=== PATIENT | female | born 1995 | race Caucasian/White ===

== ENCOUNTER 2018-03-25 12:28 | Day surgery (SDC) | payer OTHER ==
[~2018-03-25] VITALS: Ht 162.6 cm; Wt 72.6 kg
[2018-03-25 13:36] LABS: APTT 21.5 SECONDS (22.8-39.4); INR 1.05 (0.85-1.17); PROTIME 13.2 SECONDS (11.6-15.0)
[2018-03-25 13:55] LABS: BASOPHILS 0.5 % (0-2); HEMOGLOBIN 10.9 g/dL (12-16); IMMATURE GRANULOCYTES 0.3 % (0-5); LYMPHOCYTES 15.3 % (15-50); MCH 27.8 pg (26.0-34.0); MCHC 32.1 g/dL (31.0-37.0); MCV 86.7 fL (80.0-100.0); MEAN PLATELET VOLUME 10.6 fL (7.4-10.4); MONOCYTES 8.6 % (2-11); NEUTROPHILS 68.3 % (40-80); PLATELET COUNT 203 10x3/uL (130-400); RBC 3.92 10x6/uL (4.00-5.40); RDW 13.1 % (11.5-14.5); WBC 10.4 10x3/uL (4.8-10.8)
[2018-03-25 13:56] LABS: CALC OSMOLALITY 283 mosm/kg (275-300); CALCIUM 8.5 mg/dL (8.5-10.1); CARBON DIOXIDE 21.8 mmol/L (21.0-32.0); CHLORIDE - SERUM 107 mmol/L (98-107); CREATININE - SERUM 0.7 mg/dL (0.6-1.3); GLUCOSE 82 mg/dL (74-106); POTASSIUM - SERUM 4.3 mmol/L (3.5-5.1); SODIUM 144 mmol/L (136-145); UREA NITROGEN 7 mg/dL (7-18); eGFR NON AFRICAN AMERICAN > 90 mL/min (90-120)
[2018-03-25 14:06] VITALS: BP 111/70; Ht 162.6 cm; Wt 72.6 kg
[2018-03-25 14:15] LABS: HCG SERUM NEGATIVE (NEGATIVE)
--- NOTE | 2018-03-25 16:40 | NUR ---
REC'D FROM RR. FAMILY AT BEDSIDE. DRESSING CDI TO NIPPLE AREA. ICE WATER BROUGHT TO PT.
--- NOTE | 2018-03-25 16:55 | NUR ---
CALLED DR LANGFORD'S OFFICE TO CONFIRM DR HALE'S CONSULT. OFFICE PERSONNEL RELATED DR LANGFORD WOULD NOT BE ABLE TO SEE THE PATIENT BEFORE BEING DISCHARGED TODAY HAVE HER CALL IN THE AM AND SCHEDULE AN APPOINTMENT WITH DR LANGFORD. ALSO COULD NOT SCHEDULE F/U WITH DR HALE DUE TO OFFICE BEING CLOSED.
--- NOTE | 2018-03-25 17:10 | NUR ---
DARIO LEO BROUGHT TO PT. FAMILY AT BEDSIDE. NO CHANGES NOTED.
--- NOTE | 2018-03-25 17:40 | NUR ---
TOLERATED DIET. IV DC'D WITH CATHETER INTACT.
--- NOTE | 2018-03-25 18:15 | NUR ---
WRITTEN AND VERBAL DC INST. GIVEN TO PT AND SPOUSE ALONG WITH RX. RE-ENFORCED TO CALL AND MAKE F/U APPOINTMENTS TOMORROW. VERBALIZED UNDERSTANDING.
--- NOTE | 2018-03-25 18:30 | NUR ---
DC'D HOME WITH SPOUSE VIA PRIVATE VEHICLE. TAKEN TO VEHICLE VIA WC. STABLE AT TIME OF DC.
--- NOTE | 2018-04-30 15:51 | OP ---
PATIENT NAME: MERCED MILLER MEDICAL RECORD: [id number] :93 LOCATION:D.OPS ADMISSION DATE: SURGEON: NITZA HALE MD DATE OF OPERATION: 03/25/2018 REFERRED BY: Dr. Robert New from [facility]. PREOPERATIVE DIAGNOSIS: Left breast abscess. POSTOPERATIVE DIAGNOSIS: Left breast abscess. OPERATION PERFORMED: Incision and drainage of left breast abscess. SURGEON: Nitza Hale MD ANESTHESIA: General per [facility] and Dr. Hardin. PREOPERATIVE NOTE: Ms. Miller is a 22-year-old white female patient, near 2 months , who is her and has developed an abscess in the upper medial quadrant and subareolar area of her left breast. She has been treated for several days now with oral erythromycin and dicloxacillin without resolution. In fact, she has gone on from an area of induration and cellulitis to a amita abscess, which is beginning to point near the areolar margin in the upper inner quadrant. She is brought to the OR now as an outpatient for an incision and drainage. DESCRIPTION OF PROCEDURE: Under anesthesia in supine position, the patient was prepped and draped in sterile manner. She was examined with ultrasound intraoperatively, and a syringe and needle used then to aspirate pus from the abscess under ultrasound guidance and this material was sent for aerobic and anaerobic culture and sensitivity and Gram stain. A radial incision was then made at the areolar margin and the abscess cavity entered bluntly and opened such as to admit the index finger. The loculations were broken up as well as possible through that incision and the wound then irrigated with Ancef/gentamicin solution and subsequently packed with antibiotic-soaked gauze and a sterile dressing applied. She was awakened and taken to the recovery room. Blood loss during the operation was trivial and unreplaced. Sponges, instruments, and needles were accounted for. No drain was used other than the wound packing. PLAN: The patient will be discharged to home today. She is to shower daily with Hibiclens and tomorrow we will remove the bandage from her breast and then continue daily Hibiclens washes and cover the wound with clean, dry sterile gauze dressing. She is to return to see me in my office next week. She is encouraged to continue manually emptying the breast until she is able to resume nursing from the left breast. Her baby continues preferentially to feed from her right breast at this time. No new prescriptions were given today. TRANSINT:[id number] Voice Confirmation ID: [id number] DOCUMENT ID: [id number] OPERATIVE REPORT [id number] MERCED MILLER JAMES MD at 1551 CC: [id number] DICTATION DATE: 04/30/18 09 MODELING TEACHER: 04/30/18 1025 [facility] 03/25/18 [place] [id number]
== END 2018-03-25 18:30 | disposition home or self-care (01) ==
LOC: D.OPS 12:28
PROVIDERS: Anesthesiology; ATTEND Surgery
DX: O91.13 Abscess of breast associated with lactation (principal)